=== PATIENT | male | born 1950 | race Caucasian/White ===

== ENCOUNTER 2020-11-24 08:55 | Outpatient (REF) | payer MEDICARE, BC, SELFPAY ==
--- NOTE | ~2020-11-24 | CT_ITS ---
EXAMINATION: CT CHEST WITHOUT CONTRAST CLINICAL INFORMATION: Pulmonary nodules. COMPARISON: None TECHNIQUE: Multidetector volumetric CT imaging of the chest was done. Axial MIP volume rendering provided. Sagittal and coronal reformatted images were obtained. This CT examination was performed using dose optimization techniques as appropriate, variously including the following: *Automated exposure control *Adjustment of mA and/or kV according to patient size (this includes techniques or standardized protocols for targeted exams where dose is matched to indication/reason for exam; i.e. extremities or head) *Use of iterative reconstruction technique DLP: 286 mGy-cm FINDINGS: TANK TERMINAL GAUGER: Well-inflated lungs. LUNGS: The lungs are well-expanded and clear of acute pneumonic consolidation. There is a 3 mm calcified nodule right lower lobe adjacent to the major fissure axial image 287/7. A 2 mm calcified nodule seen in the left upper lobe axial image 215/7. No noncalcified nodule visualized. There is a left major fissure 5 mm nodule, axial image 302/7 likely fissural lymph node. MEDIASTINUM: There is diffuse thyroid enlargement with a large left substernal heterogeneous and partially calcified thyroid extension consistent with goiter. There is mild mass effect on the trachea with moderate shift to the left side. There is a heterogenous appearing thyroid gland. PLEURA: There is no pleural effusion. No pleural mass or thickening. AXILLA: No abnormal lymph nodes seen in the axilla. UPPER ABDOMEN: There is an 8 mm hypodensity right hepatic lobe. Otherwise, the rest of the visualized liver, spleen, pancreas, and bilateral adrenal glands are unremarkable. There is a solitary gallstone. There is a small cyst upper midpole left kidney. OSSEOUS STRUCTURES: No lytic or sclerotic process seen. CT/CT chest wo con IMPRESSION: Large left substernal heterogenous thyroid goiter deviating trachea to the right with moderate mass effect. Enlarged thyroid gland. Two small calcified granulomas and left perifissural lymph node. Hyperinflated lungs without acute process. Gallstone. 8 mm hypodense right lobe liver lesion, likely cyst.
== END 2020-11-24 08:56 | disposition home or self-care (01) ==
LOC: HO.CT 08:55
PROVIDERS: PCP Internal Medicine; Visit Provider Hospitalist
DX: R91.8 Other nonspecific abnormal finding of lung field (principal)
CPT/HCPCS: 71250

== ENCOUNTER → 2020-11-28 09:44 | Outpatient (BNVA) | payer MEDICARE, BC, SELFPAY | PROVIDERS: PCP Internal Medicine; Visit Provider Hospitalist | DX: J44.9 Chronic obstructive pulmonary disease, unspecified (principal); R91.8 Other nonspecific abnormal finding of lung field | CPT/HCPCS: 99212 ==

== ENCOUNTER 2021-12-01 08:42 | Outpatient (REF) | payer MEDICARE, BC, SELFPAY ==
--- NOTE | 2021-12-01 14:59 | PFT_ITS ---
Forced vital capacity 74%, FEV1 64%, FEV1/FVC ratio is 63, FEF 25/75, 48%, and MVV 77%. Post bronchodilator therapy, there is a significant improvement in all parameters resulting in almost complete reversibility. Total lung capacity 93%. Residual volume 133%. Diffusion capacity 62%. CONCLUSION: Moderately severe obstructive airway disorder. Almost complete reversibility after bronchodilator therapy. The results are consistent with bronchial asthma/COPD. Clinical correlation recommended. MD ROSA Bunch/LIANNA / [id number]
== END 2021-12-01 08:43 | disposition home or self-care (01) ==
LOC: HO.RESP 08:42
PROVIDERS: PCP Internal Medicine; Visit Provider Hospitalist
DX: R06.00 Dyspnea, unspecified (principal); J44.9 Chronic obstructive pulmonary disease, unspecified; R91.8 Other nonspecific abnormal finding of lung field
CPT/HCPCS: 94060; 94727; 94729; 99212

== ENCOUNTER 2022-05-14 08:39 | Outpatient (REF) | payer MEDICARE, BC, SELFPAY ==
--- NOTE | ~2022-05-14 | CT_ITS ---
EXAMINATION: CT CHEST WITHOUT CONTRAST CLINICAL INFORMATION: Pulmonary nodules COMPARISON: CT chest 11/24/2020 TECHNIQUE: Multidetector volumetric CT imaging of the chest was done. Axial MIP volume rendering provided. Sagittal and coronal reformatted images were obtained. This CT examination was performed using dose optimization techniques as appropriate, variously including the following: *Automated exposure control *Adjustment of mA and/or kV according to patient size (this includes techniques or standardized protocols for targeted exams where dose is matched to indication/reason for exam; i.e. extremities or head) *Use of iterative reconstruction technique DLP: 188 mGy-cm FINDINGS: DINNER COOK: Unremarkable LUNGS: There is a 2 mm noncalcified nodule left lung apex axial image 82/7, 2 mm noncalcified nodule right lung apex axial image 112/7, a 2 mm calcified nodule left upper lobe axial image 217/7, 2 mm calcified nodule right lower lobe superior segment axial image 80 is a 6/7 and 408/7. These nodules are stable. No acute consolidation, mass or groundglass density seen. There is 5 mm nodule in left major fissure on axial image 316/7 likely a lymph node. MEDIASTINUM: There is diffuse thyroid enlargement the galvez to white left greater than right with substernal extension deviating trachea to the right. There is moderate calcification in the left enlarged thyroid gland suggestive of goiter. PLEURA: There is no pleural effusion. No pleural mass or thickening. AXILLA: No lymphadenopathy. UPPER ABDOMEN: Visualized liver, spleen, pancreas and bilateral adrenal glands unremarkable. OSSEOUS STRUCTURES: No aggressive lytic or sclerotic process seen. CT/CT chest wo con IMPRESSION: Multiple calcified and noncalcified pulmonary nodules are stable when compared to previous study 11/24/2020. No new pulmonary nodule or abnormal lymphadenopathy. Fleischner guidelines were followed.
== END 2022-05-14 08:40 | disposition home or self-care (01) ==
LOC: HO.CT 08:39
PROVIDERS: PCP Internal Medicine; Visit Provider Hospitalist
DX: R91.8 Other nonspecific abnormal finding of lung field (principal)
CPT/HCPCS: 71250

== ENCOUNTER → 2022-05-22 10:01 | Outpatient (BNVA) | payer MEDICARE, BC, SELFPAY | PROVIDERS: PCP Internal Medicine; Visit Provider Hospitalist | DX: J44.9 Chronic obstructive pulmonary disease, unspecified (principal); E04.9 Nontoxic goiter, unspecified; R91.8 Other nonspecific abnormal finding of lung field; Z87.891 Personal history of nicotine dependence | CPT/HCPCS: 99212 ==

== ENCOUNTER 2023-06-04 13:59 | Outpatient (REF) | payer MEDICARE, BC, SELFPAY ==
--- NOTE | 2023-06-04 14:56 | PFT_ITS ---
INDICATION: COPD. SPIROMETRY: FEV1 to FVC of 66% pre bronchodilator, 71% post bronchodilator. FEV1 of 2.73 L, which is 75% predicted. FVC of 3.86 L, which is 78% predicted. There was a significant response to bronchodilators noted. Maximum voluntary ventilation 73% predicted. LUNG VOLUMES: Total lung capacity 121% predicted with a residual volume of 230% predicted and an expiratory reserve volume of 25% predicted. DIFFUSION CAPACITY: DLCO 66% predicted. COMPARISON: None available. INTERPRETATION: There appears to be a partially reversible obstructive ventilatory defect suggestive of asthma-COPD overlap syndrome. The patient did have significant response to bronchodilators noted, and there was a mild decrease in the maximum voluntary ventilation secondary to deconditioning and also potentially worsening dynamic inspiratory capacity. Lung volumes with a trend of hyperinflation and significant air trapping due to the obstructive physiology. The patient also has a decrease in the expiratory reserve volume secondary to an elevated BMI. The patient does have a mild diffusion impairment. Clinical correlation warranted. MD ESTEFANY Carver/MODRonny / [id number]
== END 2023-06-04 14:00 | disposition home or self-care (01) ==
LOC: HO.RESP 13:59
PROVIDERS: PCP Internal Medicine; Visit Provider Hospitalist
DX: J44.9 Chronic obstructive pulmonary disease, unspecified (principal); E04.9 Nontoxic goiter, unspecified; R91.8 Other nonspecific abnormal finding of lung field
CPT/HCPCS: 94010; 94727; 94729

== ENCOUNTER → 2023-06-04 14:56 | Outpatient (BNV) | payer MEDICARE, BC, SELFPAY | PROVIDERS: PCP Internal Medicine; Visit Provider Hospitalist | DX: J45.909 Unspecified asthma, uncomplicated (principal) | CPT/HCPCS: 94060; 94727; 94729 ==

== ENCOUNTER 2023-07-15 15:02 | Outpatient (AMB) | payer MEDICARE, BC, SELFPAY ==
--- NOTE | 2023-07-15 15:24 | A.OFFVIS_ITS ---
Intake Vital Signs 07/15/23 15:31 Height 6 ft 3 in Weight 223 lb BMI 27.9 BP 132/72 Blood Pressure Location Rt brachial Position Sitting Pulse 81 Pulse Oximetry (%) 96 Oxygen Delivery Method Room Air Intake Visit Reasons: COPD Intellectual Property Counsel Required: No Allergies No Known Allergies Allergy (Verified 07/15/23 15:32) HPI HPI Comments History of Present Illness Details He is a 72-year-old gentleman known history of COPD in addition to pulmonary nodules. He had been taking Advair but we switched him over to Symbicort. He has not been using it. He has been noticing increasing shortness of breath knmr-pn-[id number] severity. Associated with some wheezing. Therefore, we took advantage to teach in her uses Symbicort with the respiratory therapist and he took a dose. The patient tolerated it well. He has had a recent CT scan of the chest done 05/2019 and was compared to a CAT scan he had back 2 years ago. His nodules appear to be stable measuring 2-5 mm. He also has some mild emphysema. Otherwise the goiter is also appears to be stable with some deviation to the trachea but still patent trachea which is reassuring. The patient is about to start pulmonary rehabilitation. 12/01/2021 the patient is here for a pulmonary follow-up visit. He continues to have dyspnea on exertion. Thip-wc-culvtaxu severity. He has been using his inhalers. He did have pulmonary function studies demonstrating significant COPD. initially he was [facility]. [facility] inhal[facility]. He has not had to use his rescue inhaler. We did review his last CT scan of the chest done back in November 2020 demonstrating both calcified and noncalcified pulmonary nodules. His largest nodule measures 5 mm. Will have him repeat a CT scan sometime in 4-6 months. 07/15/2023 the patient is here for a pulmonary follow-up visit. Overall the patient has been feeling better. Apparently he has been followed closely for his history of prostate cancer. His PSA levels have been elevated and the p atient did undergo a PET scan. PET scan demonstrated 1 area of uptake in the azygous lymph node. The options were to continue hormonal therapy or to consider radiation therapy likely SP RT to the area. Patient opted to be aggressive so he did receive SBRT over the summer and nodule recovered. He continues on normal therapy and will be following up with [facility] [place] the [place]. The patient does have underlying pulmonary nodules. The last CT scan he had here at [place] was back in 2021. But in view now that he is going to [place] and upgoing the PET scan no additional CT scans are warranted. The patient will continue to get imaging studies through [facility]. Respiratory coburn patient is doing well continues use Wixela twice a day. He did have PFTs done still demonstrating a partially reversible obstruction suggesting asthma COPD overlap syndrome. He also has significant air trapping noted, but it may also be an issue with the volume measurements. Clinically the patient is doing well he is able to exercise and go up a flight of stairs without any significant shortness of breath. Will follow-up in a year's time unless the patient has any worsening respiratory symptoms. He also will request additional imaging studies and SCDs we can not download into our PAC system. [facility] Medical History (Updated 07/15/23 @ 15:43 by Antonio Leach MD) Goiter Pulmonary nodules COPD (chronic obstructive pulmonary disease) Social History (Updated 05/22/22 @ 10:21 by ZHANG De La Garza) Patient Tobacco Use Status: Former Tobacco user Tobacco use type: Cigarette Years Smoked: 5 Years Review of Systems Const Denies night sweats ENT Denies change in voice, Denies dysphagia, Denies lip swelling, Denies mouth pain, Reports nasal congestion, Reports nasal discharge and Denies tongue swelling Card Denies chest pain Resp Denies cough and Denies stridor GI Denies abdominal pain and Denies dysphagia Musc Denies no additional complaints Neuro Denies Neuro-related abnormal movements Psych Denies no additional complaints Endo Reports as per HPI and Reports flushing Edgar/Lymph Denies easy bleeding and Denies lymphadenopathy Aller/Immun Denies lip swelling and Denies tongue swelling Physical Exam Vital Signs: Last Vital Signs Pulse 81 07/15/23 15:31 BP 132/72 07/15/23 15:31 Pulse Ox 96 07/15/23 15:31 Oxygen Delivery Method Room Air 07/15/23 15:31 BMI result Body Mass Index 27.9 Const General: alert HEENT General nose exam: Abnormal external nose present and Nasal discharge present Neck Neck: Yes normal visual inspection, Yes full ROM and Yes no lymphadenopathy Chest Chest palpation & inspection: normal inspection of the chest Resp Auscultation: diminished lung sounds Cardio Rate: regular rate Rhythm: regular rhythm Heart sounds: S1 normal heart sound present and S2 normal heart sound present GI Palpation (GI): Soft to palpation and nontender Auscultation: normal bowel sounds General: Yes no CVA tenderness Back/Spine/Pelvis Back: no CVA tenderness Skin General skin exam: rashes and/or lesions noted Assessment & Plan Assessment & Plan (1) Goiter: Code(s): E04.9 - Nontoxic goiter, unspecified (2) Pulmonary nodules: Code(s): R91.8 - Other nonspecific abnormal finding of lung field (3) COPD (chronic obstructive pulmonary disease): Code(s): J44.9 - Chronic obstructive pulmonary disease, unspecified Qualifiers: COPD type: chronic bronchitis Chronic bronchitis type: simple Qualified Code(s): J41.0 - Simple chronic bronchitis Plan Continue Wixela short-acting beta agonist as needed continue singular continue Claritin as needed spirometry in [address] chest as per [facility] follow-up in 1 year with spirometry Coding Level of Care Code Est Pt Level 4 (71444) Diagnoses Goiter E04.9 Pulmonary nodules R91.8 Simple chronic bronchitis J41.0 COPD type: chronic bronchitis Chronic bronchitis type: simple Time Spent (min) 17
[2023-07-15 15:31] VITALS: BP 132/72; PULSE 81; O2SAT 96; BMI 27.9
== END 2023-07-15 15:52 | disposition home or self-care (01) ==
PROVIDERS: PCP Internal Medicine; Visit Provider Hospitalist
DX: E04.9 Nontoxic goiter, unspecified (principal); R91.8 Other nonspecific abnormal finding of lung field; J41.0 Simple chronic bronchitis
CPT/HCPCS: 99214

== ENCOUNTER → 2023-07-15 15:02 | Outpatient (BNVA) | payer MEDICARE, BC, SELFPAY | PROVIDERS: PCP Internal Medicine; Visit Provider Hospitalist | DX: J41.0 Simple chronic bronchitis (principal); R91.8 Other nonspecific abnormal finding of lung field; E04.9 Nontoxic goiter, unspecified | CPT/HCPCS: 99212 ==

== ENCOUNTER 2025-07-12 14:33 | Outpatient (AMB) | payer MEDICARE, BC, SELFPAY ==
--- NOTE | 2025-07-12 14:56 | MHC.OFFVIS ---
Vital Signs 07/12/25 14:57 Height 6 ft 3 in Weight 187 lb 6.287 oz BMI 23.4 BP 130/68 Blood Pressure Location Lt brachial Position Sitting Pulse 68 Pulse Source Pulse Oximeter Pulse Oximetry (%) 96 Oxygen Delivery Method Room Air Intake Visit Reasons: copd Outsole Leveler Required: No Accompanied by: Self / Same As Patient Allergies No Known Allergies Allergy (Verified 07/12/25 15:00) HPI Comments Details: He is a 74-year-old gentleman known history of COPD in addition to pulmonary nodules. He had been taking Advair but we switched him over to Symbicort. He has not been using it. He has been noticing increasing shortness of breath [id number] severity. Associated with some wheezing. Therefore, we took advantage to teach in her uses Symbicort with the respiratory therapist and he took a dose. The patient tolerated it well. He has had a recent CT scan of the chest done 05/2019 and was compared to a CAT scan he had back 2 years ago. His nodules appear to be stable measuring 2-5 mm. He also has some mild emphysema. Otherwise the goiter is also appears to be stable with some deviation to the trachea but still patent trachea which is reassuring. The patient is about to start pulmonary rehabilitation. 12/01/2021 the patient is here for a pulmonary follow-up visit. He continues to have dyspnea on exertion. Pabd-wx-exgznrsf severity. He has been using his inhalers. He did have pulmonary function studies demonstrating significant COPD. initially he was on Symbicort. But, [facility] Wixela [facility]ary inhaler. He has not had to use his rescue inhaler. We did review his last CT scan of the chest done back in November 2020 demonstrating both calcified and noncalcified pulmonary nodules. His largest nodule measures 5 mm. Will have him repeat a CT scan sometime in 4-6 months. 07/15/2023 the patient is here for a pulmonary follow-up visit. Overall the patient has been feeling better. Apparently he has been followed closely for his history of prostate cancer. His PSA levels have been elevated and the patient did undergo a PET scan. PET scan demonstrated 1 area of uptake in the azygous lymph node. The options were to continue hormonal therapy or to consider radiation therapy likely SP RT to the area. Patient opted to be aggressive so he did receive SBRT over the summer and nodule recovered. He continues on normal therapy and will be following up with [facility] regarding the treatment. The patient does have underlying pulmonary nodules. The last CT scan he had here at [place] was back in 2021. But in view now that he is going to [place] and upgoing the PET scan no additional CT scans are warranted. The patient will continue to get imaging studies through [facility]. Respiratory coburn patient is doing well continues use Wixela twice a day. He did have PFTs done still demonstrating a partially reversible obstruction suggesting asthma COPD overlap syndrome. He also has significant air trapping noted, but it may also be an issue with the volume measurements. Clinically the patient is doing well he is able to exercise and go up a flight of stairs without any significant shortness of breath. Will follow-up in a year's time unless the patient has any worsening respiratory symptoms. He also will request additional imaging studies and SCDs we can not download into our PAC system. 07/12/2025 the patient is here for a pulmonary follow-up visit. Overall he is doing excellent. He has had some lifestyle changes have been very helpful. He has changed his eating habits and also started exercising. He has significant amount of weight loss and healthy way. He initially was diagnosed with diabetes but then was able to get the hemoglobin A1c down to below 6 which is reassuring. From a respiratory status is doing well although in the fall typically has increasing symptoms. [facility]. As far as the prostate cancer with metastatic disease he is followed closely at [facility]. The patient did have a PET scan back in 2022. No recent CAT scans to follow up with his pulmonary nodules we has both calcified and noncalcified pulmonary nodules. Will go ahead and request a repeat CAT scan sometime in the spring of 2025 and will follow-up then. If he has any issues prior to this she can always call for further recommendations otherwise will follow-up in a year's time. [facility] Medical History (Updated 07/15/23 @ 15:43 by Antonio Leach MD) Goiter Pulmonary nodules COPD (chronic obstructive pulmonary disease) Social History Patient Tobacco Use Status: Former Tobacco user Tobacco use type: Cigarette Years Smoked: 5 Years Review of Systems Const Denies night sweats and Reports weight loss ENT Denies change in voice, Denies dysphagia, Denies lip swelling, Denies mouth pain, Reports nasal congestion, Reports nasal discharge and Denies tongue swelling Card Denies chest pain Resp Denies cough and Denies stridor GI Denies abdominal pain and Denies dysphagia Musc Denies no additional complaints Neuro Denies Neuro-related abnormal movements Psych Denies no additional complaints Endo Reports as per HPI and Reports flushing Edgar/Lymph Denies easy bleeding and Denies lymphadenopathy Aller/Immun Denies lip swelling and Denies tongue swelling Physical Exam Vital Signs: Last Vital Signs Pulse 68 07/12/25 14:57 BP 130/68 07/12/25 14:57 Pulse Ox 96 07/12/25 14:57 Oxygen Delivery Method Room Air 07/12/25 14:57 BMI result Body Mass Index 23.4 Const General: alert HEENT General nose exam: Abnormal external nose present and Nasal discharge present Neck Neck: Yes normal visual inspection, Yes full ROM and Yes no lymphadenopathy Chest Chest palpation & inspection: normal inspection of the chest Resp Effort & Inspection: normal respiratory effort Auscultation: diminished lung sounds Cardio Rate: regular rate Rhythm: regular rhythm Heart sounds: S1 normal heart sound present and S2 normal heart sound present GI Palpation (GI): Soft to palpation and nontender Auscultation: normal bowel sounds General: Yes no CVA tenderness Back/Spine/Pelvis Back: no CVA tenderness Skin General skin exam: rashes and/or lesions noted Assessment & Plan Assessment & Plan (1) Goiter: Code(s): E04.9 - Nontoxic goiter, unspecified Category: Medical (2) Pulmonary nodules: Code(s): R91.8 - Other nonspecific abnormal finding of lung field Category: Medical (3) COPD (chronic obstructive pulmonary disease): Code(s): J44.9 - Chronic obstructive pulmonary disease, unspecified Category: Medical Qualifiers: COPD type: chronic bronchitis Chronic bronchitis type: simple Qualified Code(s): J41.0 - Simple chronic bronchitis Plan Continue Wixela short-acting beta agonist as needed continue singular continue Claritin as needed CT chest in 6 months follow-up in 1 year Orders: Orders CT chest wo IV con 6 Months R91.8 - Other nonspecific abnormal finding of lung field Coding Level of Care Code Est Pt Level 4 (53305) Diagnoses Goiter E04.9 Pulmonary nodules R91.8 Simple chronic bronchitis J41.0 COPD type: chronic bronchitis Chronic bronchitis type: simple Time Spent (min) 16
[2025-07-12 14:57] VITALS: BP 130/68; PULSE 68; O2SAT 96; BMI 23.4
--- OUTSIDE RECORDS SUMMARY | 2025-07-12 18:21 | XMS_ITS | Encounter Summary ---
Author Organization [facility] Address [address] [facility] [place] [phone] Phone Care Team Providers Care Protocol Officer Name Role Phone Sd Drew MD Primary Care Provider + [phone] Denny Jean DO Primary Care Provider Encounter Details Date Type Department Care Team (Late st Contact Info) Description 01/08/2025 [employer] Generated VIRTUAL DEPARTMENT [address] [place] [phone] Unknown, Unknown, Social History Tobacco Use Types Packs/Day Years Used Date Smoking Tobacco: Former Cigarettes Q uit: 1973 Smokeless Tobacco: Never Alcohol Use Standard Drinks/Week Comments Yes 0 (1 standard drink = 0.6 oz pur e alcohol) ocassional beer Education Answer Date Recorded Are you interested in more education? Not on alfred e 01/17/2023 Are you concerned about learning? Not on file 01/17/2023 No 01/17/2023 No 01/17/2023 Digital Access Answer Date Recorded No 02/19/2023 No 02/19/2023 Reliable internet access at home? Not on file 02/19/2023 Device with a working camera? Not on file Sex and Gender Information Value Date Recorded Sex Assigned at Not on file Legal Sex Male 3:45 PM EST Gender Identity Not on file Sexual Orientation Not on file documented as of this encounter Progress Notes * Otf Carbajal MD - 01/08/2025 12:00 AM EDT [facility] ONCOLOGY PROGRESS NOTE Patient Name: DUSTIN REID Date of : 1950 Diagnosis: [ICD10] C61 Malignant neoplasm of prostate PCP: SD DREW Date of Visit: January 08, 2025 Last visit: 03/16/2024 Reason for Visit: Prostate cancer Interval History: He is here alone today. PSA remains undetectable, done at [facility]. Will his testosterone levels have not returned to normal. We discussed these matters at length and if he wishes, he could consider discussing this with an securities vault supervisor. Testosterone replacement therapy could be considered but this would be somewhat risky given his history of prostate cancer. We also discussed the utility of a DEXA scan and he may consider this with his PCP or local team. He wishes to have another visit here and will do so in 9 months. PREV COMMENTS # JUN 2025 07/09/2024: PSA < 0.01. CBC shows a mild anemia. He reports he is feeling well overall. No acute issues. We review his mild anemia. No bleeding in stool or urine. We discussed that he may want to speak with his PCP about this matter. I am unsure if he has had a colonoscopy or has concerns around GI bleed, though he states he had a c-scope a few years ago, normal. He will discuss this further with his PCP. Getting an annual PE soon, will be checking labs again he thinks. Testosterone levels remain suppressed. It may take up to a year for levels to normalize, if they do. We are finewith another visit in 6 months. # FEB 2024 He is here alone. He is now on surveillance. He reports feeling well, energy is improving. We discussed concepts of testosterone recovery and further PSA testing. He wishes to have another visit in 4 months, per patient preference, which is fine. He is fine with in person visits. # NOV 2023 He is here with his . We review his labs done at [facility]. 11/13/2023: CBC 7.33/12.8, 39.6%/222, PSA less than 0.01 Today will be his last leuprolide shot. He does report some fatigue, but tolerable. # AUG 2023 He is here with . PSA was not done but they will do post visit. He was supposed to do at [facility], but he will do that in the future. He otherwise is doing well. Still has tolerable hot flashes. Has decreased stamina. He will get a 3 month dose of leuprolide. He will get a dosetoday and his next visit will be his last dose. I will contact him post visit with his PSA results. # APR 2023 He is here with his . Overall he is doing well with ADT. We discussed matters at length and he is willing to continue for longer treatment.He may benefit from a longer than 6 months duration of ADT for his concurrent radiation/ADT therapy. I am thinking perhaps 1 to 1.5 years. He will obtain labs closer to home at the [facility] labs. I will send orders through [employer]. He will see me again in 3 months for next leuprolide shot though. #FEB 2023 He is here with his . PSA now undetectable. I give him a copy of results. He completed radiation therapy with our colleagues out at [facility]. He will continue with his next leuprolide dose. We discussed duration of 6 months versus longer. We will continue discussion next time. #NOV 2022 He is here alone. We start leuprolide. I did reach out to his radiation oncologist, Dr Roe, and apparently, he is no longer at that practice. I will review his scans with Dr Cárdenas. He will proceed with a 3 month shot today. # 11/23 PETCT PSMA shows a thoracic lymph node lesion and possible pelvic lymph node involvement, though low tumor burden. He is willing to start ADT. Bicalutamide will be started and he will return next week to start leuprolide. Radiation to the thoracic node could be considered, though I do wonder about the radiation field and the risk benefit of radiation to this area. # OCT 2022 He is here alone today. We reviewed his prostate cancer history. He has undergone prostatectomy and adjuvant radiation therapy in 2014. PSA had been undetectable until summer 2021 when it became detectable. Most recent PSA on 10/29/2022 shows 0.53. He has been recently seen by colleague Dr. Gurdeep Munoz. He is referred here to medical oncology for concerns of biochemical recurrence. He has no major symptomatic issues at this time. We discuss at length concepts of biochemical recurrence. He wishes to have staging scans. Review of Systems: A full 12 point review systems was performed and is otherwise unremarkable except as noted elsewhere. Diagnosis History: BACKGROUND: Referred from PCP and urologist for concerns of prostate cancer. 01/10/2015: Prostatectomy, prostate adenocarcinoma with extraprostatic extension seen. 57 g, [place] 9 (4+5), neoadjuvant therapy effect seen, 0 of 4 lymph nodes, (pT3a, pN0, pMX) LVI negative, PNI positive, no seminal vesicles involvement. Margin negative. Dr Ronn Ward, [facility]. 04/18/2015 - 06/03/2015 adjuvant radiation therapy given, with Josef Roe MD at [facility]; concurrent ADT given. 11/09/2022: First visit [facility] medical oncology Dr. Otf Carbajal 11/23/2022: start ADT 01/14/2023 - 02/01/2023 - XRT to R mediastinal LN PSA 06/20/2022 0.13 10/29/2022 0.53 Past Medical History: Asthma Kidney stones Prostate cancer Hypertension BPH Renal cysts Medications: amLODIPine 10 mg 1 Tablet Oral Daily metoprolol succinate 25 mg 1 Tablet Oral Daily pravastatin 20 mg 1 Tablet Oral Daily Wixela Inhub [fluticasone propionate/salmeterol xinafoate] 250-50 mcg/dose Inhalation loratadine 10 mg 1 Tablet Oral Daily aspirin 81 mg 1 Tablet Oral Daily ProAir HFA [albuterol sulfate] 90 mcg/actuation Inhalation As Needed latanoprost 0.005 % Ophthalmic Daily bicalutamide 50 mg 1 Tablet Oral Daily Allergies: No Known Drug Allergies Family History: Will review in future Social History: , spouse , 2 sons; works in sales History of smoking, rare etoh use. Physical Examination: Date 11/09/2022 05/20/2023 01/08/2025 Time 10:29 AM 10:12 AM 10:27 AM Vital Signs & Weight T (F) (F) 97.8 P 69 B/P (mmHg) 136/73 L or R Arm LA Oxygen Saturation (%) 99 Height (in) (inch) 72.75 Weight (lb) (lb) 181 BSA(D) (m*2) 2.06 BMI (A) (kg/m*2) 24 Percent Weight Change -21 Pain Intensity-Current None ECOG performance status: 1 GENERAL: Alert and oriented x 3, no acute distress, well nourished and developed, friendly, appropriate and cooperative. HEENT: normocephalic, atraumatic head, EOMI, anicteric sclera, neck supple, oropharynx clear, no lid lag, nares normal. LN: no submandibular, cervical, supraclavicular lymphadenopathy noted Lungs: no respiratory distress noted. Abdomen: soft, ND Extremities: no leg edema noted Neuro: no focal deficits, motor strength 5/5 grossly Laboratory Data: 11/21/2022 PETCT PSMA Comparison exams: None. Findings: Head and Neck: There is a large goiter, with enlargement of the left lobe greater than right, right with deviation of the trachea which is also mildly narrowed. There is substernal extension of left lobe, with multiple calcifications within the parenchyma particularly of the left lobe. No abnormal uptake is found here. No other abnormal uptake is noted within the neck Chest: There is focal moderately intense uptakewithin a nonenlarged azygos lymph node. No other abnormal uptake is found within the mediastinum, hilar, axillary or supraclavicular regions, chest wall, pleural spaces or lungs. No pleural or pericardial effusions. No lung nodules, or airspace opacities are found. Abdomen and Pelvis: No surgicalclips are noted, but the patient appears to be post radical prostatectomy, as neither prostate nor seminal vesicles are identified. No abnormal uptake is found within the prostatic bed, or remaining perivesical, pelvic fat. No abnormal uptake is notedwithin obturator, internal iliac, presacral, external iliac, common iliac, periaortic retroperitoneal and pericaval lymph node chains of gonadal chains on either side. No hydronephrosis or hydroureter. There is quite low level uptake within nonenlarged left inguinal lymph nodes, similar to blood pool, but while these are not enlarged, these are asymmetrically increased in number and show greater uptake than the contralateral side. No abnormal uptake is found of liver, spleen, adrenal glands, pancreas.There is cholelithiasis. There is mild stool distention of the sigmoid, but without evidence of stercoral colitis, or distal stenosis, or suggestion of the sigmoid mass no distention of the remainder of the colon with gas or stool. Appendix unremarkable. Skeleton: No abnormal uptake is found. No suspicious bony lytic or sclerotic lesions. Impression: 1. Prominent uptake is noted of a small mediastinal retrocaval azygos lymph node, suspicious for metastasis. 2. Asymmetrically increased numberand asymmetrically larger size (although not abnormally enlarged using CT size criteria) and borderline increased uptake of left inguinal lymph nodes. 3. Cholelithiasis. 4. 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 Electronically Signed By: Tra Pierce MD Date Time PSA 06/20/2022 0.13 10/29/2022 0.Nov started ADT 12/03/2022 0.23 mid APR - XRT to mediastinal lymph node 02/21/2023 <0.04 04/26/2023 <0.04 08/23/2023 <0.04 11/13/2023: <0.01 ([facility]) 03/05/2024 <0.01 ([facility]) 07/09/2024: <0.01 ([facility]) 01/01/2025: <0.01 ([facility]) CBC 7 11/04.6, 38.5%/ T= <3 Assessment:74 M with prostate adenocarcinoma, status post prostatectomy and adjuvant radiation therapy in 2014, [place] 9 (4+5) disease, now with concerns of biochemical recurrence, 10/29/2022 PSA 0.56. PETCT PSMA scans in early NOV 2022 shows oligomet disease. Clinically stable. ADT started in NOV 2022. Radiation to mediastinum for lymph node involvement completed in JANUARY 2023. ADT completed FEB 2024. Today continues undetectable PSA. Testosterone levels remain low. Consider DEXA scan, per patient locally. PREV COMMENTS # JUN 2024 Doing well from PSA perspective. Mild anemia noted as above. He will review with PCP. # FEB 2024 he is doing well on surveillance. We will see how his testosterone recovers. # NOV 2023 He is doing well, PSA remains undetectable. Today is his last leuprolide dose. # AUG 2023 he continues to do well with ADT. PSA is undetectable. # APR 2023 as above, we will continue with leuprolide for longer than 6 months, given unusual site of recurrence and high-grade Gerald score cancer. He is tolerating ADT well. Next visit, we may consider giving a 6-month duration shot. We will continue with 3-monthinterval PSA checks though. Supportive care and encouragement given. # FEB 2023 PSA undetectable. He is doing well. Continue with leuprolide. Consider 6 mo duration or longer. # NOV 2022 He returns to start leuprolide. We will discuss concepts of abiraterone use in the future, though given his low tumor burden, we can defer its use for now. Review with rad onc as above. # 11/23 as above, we reviewed PET/CT PSMA scans which show evident, but low tumor burden. After some discussion, he wishes to proceed with start of ADT. There could be possibility of radiation to the area but we will review this with his radiation oncologist. I did have initial concerns of radiation field side effects but I will defer this to the radiation oncologist for better assessment. Patient will start bicalutamide, then return in 1-2 weeks for leuprolide therapy. # OCT 2022 Summary thoughts: We reviewed matters at length and he wishes to proceed with a PETCT PSMA scan, which is reasonable. We will see if there is potential for oligometastatic disease directed therapy to optimize ADT exposure. See 11/09/2022 note for other initial detailed comments. Leuprolide management Leuprolide dose: 22.5 mg on 11/22/2023; last dose, completing approximately 15 months duration. ADT side effects: minimal Bone management - on calcium and vitamin D - Denosumab orZometa use; DEXA scan, FRAX score TBD Cardiac/DM risks: consider meds, management, referral as needed Plan: 1. On surveillance. 2. RTC 9 months, previsit labs ordered. Pt is fine with inperson visits here. Otf Carbajal MD Medical Oncology Visit 40 min -this is inclusive of review of records, documentation of visit, care coordination and further consideration of treatment plan as well as time spent with patient, as above. I have maintained a longitudinal relationship with the patient, overseeing the care of their prostate cancer diagnosis. This has significantly influenced my decision-making and treatment plans during today's encounter. Electronically signed by: Otf Carbajal MD January 12, 2025 8:03 PM CC: cc: CHAYITO CANTU, MD Jaswinder Estrella MD RICHARDS, RAYMOND : 1950 DOS: 01/08/25 Page 2 of 2 CC OTHER PROVIDER: HENRY MUNOZ MD PRIMARY CARE: SD DREW MD documented in this encounter Plan of Treatment Upcoming Encounters Date Type Department Care Team (Late st Contact Info) Description 11/22/2025 4:00 PM EST Office Visit [facility] [address] [place] [address] Denny Jean DO [address] [facility], [address] [place] [phone] 02/15/2026 3:15 PM EDT Follow-Up [facility] [address] [place] [address] Gurdeep Munoz MD [address] [place] [address] [email or web address] documented as of this encounter Visit Diagnoses Not on filedocumented in this encounter Care Teams Protocol Officer Relationship Specialty Start Date End Date Sd Drew MD [address] [place] [address] PCP - General Internal Medicine 12/19/22 05/20/25 Denny Jean DO [address] [place] [address], [address] [place] [phone] [email or web address] PCP - General Internal Medicine 05/21/25 documented as of this encounter Additional Source Comments The information contained in this document represents components of the legal health record. It is not the complete legal health record.[facility]
--- OUTSIDE RECORDS SUMMARY | 2025-07-12 18:21 | XMS_ITS | Encounter Summary ---
Author Organization [facility] Address [address] [facility] [address] [place], [place] [id number] Phone Care Team Providers Care Executive Administrative Asst Name Role Phone Shital Drew MD Primary Care Provider + [phone] Denny Jean DO Primary Care Provider Encounter Details Date Type Department Care Team (Late st Contact Info) Description 05/20/2023 [employer] Generated VIRTUAL DEPARTMENT Unknown, Unknown, MD Social History Tobacco Use Types Packs/Day Years [...] Progress Notes * Otf Carbajal MD - 05/20/2023 12:00 AM EDT [facility] MEDICAL ONCOLOGY PROGRESS NOTE Patient Name: SUGEY REID Date of : 1950 Diagnosis: [ICD10] C61 Malignant neoplasm of prostate PCP: SHITAL DREW Date of Visit: May 20, 2023 Last visit: 02/25/2023 Reason for Visit: Prostate cancer Interval History: He is here with his . Overall he is doing well with ADT. We discussed mattersat length and he is willing to continue for longer treatment. He may benefit from a longer than 6 months duration of ADT for his concurrent radiation/ADT therapy. I am thinking perhaps 1 to 1.5 years. He will obtain labs closer to home at the [facility] labs. I will send orders through [employer] [employer]. He will see me again in 3 months for next leuprolide shot though. PREV COMMENTS #FEB 2023 He is here with his . PSA now undetectable. I give him a copy of results. He completed radiation therapy with our colleagues out at [facility]. He will continue with his next leuprolide [...] risk benefit of radiation to this area. Discussed and patient will consider reaching out to his local radiation oncologist to have review of this matter. # OCT 2022 He is here alone [...] adenocarcinoma with extraprostatic extension seen. 57 g, Roselle 9 (4+5), neoadjuvant therapy effect seen, 0 of 4 lymph nodes, (pT3a, pN0, pMX) LVI negative, PNI positive, no seminal vesicles involvement. Margin negative. Dr Ronn Ward, [facility]. 04/18/2015 - 06/03/2015 adjuvant radiation therapy given, with Josef Roe MD at [facility]; concurrent ADT given. 11/09/2022: First visit [facility] medical oncology Dr. Otf Carbajal 11/23/2022: start [...] etoh use. Physical Examination: Date 11/09/2022 05/20/2023 Time 10:29 AM 10:12 AM Vital Signs & Weight T (F) (F) 97.8 P 76 B/P (mmHg) 151/71 L or R Arm LA Oxygen Saturation (%) 98 Height (in) (inch) 72.75 Weight (lb) (lb) 217 BSA(D) (m*2) 2.22 BMI (A) (kg/m*2) 28.8 Percent Weight Change -6 Pain Intensity-Current None ECOG performance status: 0. GENERAL: Alert and oriented x 3, no [...] neck Chest: There is focal moderately intense uptake within a nonenlarged azygos lymph node. No other abnormal uptake is found within the mediastinum, hilar, axillary or supraclavicular regions, chest wall, pleural spaces or lungs. No pleural or pericardial effusions. No lung nodules, or airspace opacities are found. Abdomen and Pelvis: No surgical clips are noted, but the patient appears to be post radical prostatectomy, as neither prostate nor seminal vesicles are identified. No abnormal uptake is found within the prostatic bed, or remainingperivesical, pelvic fat. No abnormal uptake is noted within obturator, internal iliac, presacral, external iliac, common iliac, periaortic retroperitoneal and pericaval lymph node chains of gonadal chains on either side. No hydronephrosis or hydroureter.There is quite low level uptake within nonenlarged left inguinal lymph nodes, similar to blood pool, but while these are not enlarged, these are asymmetrically increased in number and show greater uptake than the contralateral side. No abnormaluptake is found of liver, spleen, adrenal glands, pancreas. There is cholelithiasis. There is mild stool distention [...] node, suspicious for metastasis. 2. Asymmetrically increased number and asymmetrically larger size (although not abnormally enlarged using CT size criteria) and borderline increased uptake of left inguinal lymph nodes. 3. Cholelithiasis. 4. 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 Electronically Signed By: Tra Pierce MD Date 02/21/2023 05/16/2023 Time 10:45 AM 1:39 PM CBC with Differential WBC (10^3/mm3) 7.7 8.0 RBC (10^6/mm3) 4.56 4.68 HEMOGLOBIN (g/dl) 13.6 13.9 HEMATOCRIT (%) 40.2 L 42.4 PLATELET (10^3/mm3) 254 243 % NEUTROPHILS (%) 73.3 H 71.8 H % LYMPHOCYTES (%) 12.3 L 14.6 L % MONOCYTES (%) 9.9 9.7 % EOSINOPHILS (%) 3.2 3.0 % BASOPHILS (%) 0.9 0.7 % IMMATURE GRANULOCYTES (%) 0.4 0.2 ABSOLUTE NEUTROPHIL COUNT (10^3/mm3) 5.7 5.7 ABSOLUTE LYMPHOCYTE COUNT (10^3/mm3) 1.0 1.2 ABSOLUTE MONOCYTE COUNT (10^3/mm3) 0.8 0.8 ABSOLUTE EOSINOPHIL COUNT (10^3/mm3) 0.3 0.2 ABSOLUTE BASOPHIL COUNT (10^3/mm3) 0.1 0.1 ABS IMMATURE GRANULOCYTES (10^3/mm3) 0.0 0.0 MCV (fL) 88.2 90.6 MCH (pg) 29.8 29.7 MCHC (g/dl) 33.8 32.8 RBC DISTRIBUTION WIDTH (%) 12.4 11.6 % NUCLEATED RBC (%) 0 0 ABS NUCLEATED RBC (10^3/mm3) 0.0 0.0 COMMP SODIUM (mEq/L) 144 142 POTASSIUM (mEq/L) 4.1 4.1 CHLORIDE (mEq/L) 106 104 CARBON DIOXIDE (mEq/L) 32 H 32 H ANION GAP (mEq/L) 6 6 GLUCOSE (mg/dL) 212 H 112 H BUN (mg/dL) 18 23 Creatinine (mg/dL) 1.04 1.01 GFR ESTIMATED (CALC) () 75 CALCIUM (mg/dL) 9.7 10.2 TOTAL PROTEIN (g/dl) 7.7 8.1 ALBUMIN (g/dl) 4.5 GLOBULIN (g/dl) 3.2 3.3 ALB/GLOB RATIO 1.4 1.5 BILIRUBIN,TOTAL (mg/dL) 0.5 0.4 ALKALINE PHOSPHATASE (U/L) 98 92 AST(SGOT) (U/L) 14 10 L ALT(SGPT) (U/L) 20 25 Chemistry PROSTATE SPECIFIC ANTIGEN (ng/ml) < 0.04 < 0.04 Other Labs WHITE BLOOD CELL COUNT (10^3/mm3) 7.70 8.00 Hematocrit (%) 40.20 L 42.40 Potassium (mEq/L) 4.10 4.10 AST(SGOT) (U/L) 14.00 10.00 L ALT(SGPT) (U/L) 20.00 25.00 Sodium (mEq/L) 144.00 142.00 Chloride (mEq/L) 106.00 104.00 Bilirubin, Total (mg/dL) 0.50 0.40 Hemoglobin (g/dl) 13.60 13.90 ALBUMIN (gm/dl) 4.8 MPV (fL) 9.6 9.2 L eGFRcr 78 PSA 06/20/2022 0.13 10/29/2022 0.Nov started ADT 12/03/2022 0.23 mid APR - XRT to mediastinal lymph node 02/21/2023 <0.04 04/26/2023 <0.04 Assessment:72 M with prostate adenocarcinoma, status post prostatectomy and adjuvant radiation therapy in 2014, Gerald 9 (4+5) disease, now with concerns of biochemical recurrence, 10/29/2022 PSA 0.56. PETCT PSMA scans in early NOV 2022 shows oligomet disease. Clinically stable. ADT started in NOV 2022. Today as above, we will continue with leuprolide for longer than 6 months, given unusual site of recurrence and high-grade Gerald score cancer. He is tolerating ADT well. Next visit, we may considergiving a 6-month duration shot. We will continue with 3-month interval PSA checks though. Supportive care and encouragement given. PREV COMMENTS # FEB 2023 PSA undetectable. He is doing well. Continue with leuprolide. Consider 6 mo duration or longer. # NOV 2022 He returns to start leuprolide. We will discuss concepts of abiraterone use in the future, though given his low tumor burden, we can defer its use for now. Review with rad onc as above. # / as above, we reviewed PET/CT PSMA scans [...] Leuprolide management Leuprolide dose: 22.5 mg on 05/20/2023; next administration on 08/12/2023 ADT side effects: minimal Bone management - on calcium and vitamin D - Denosumab or Zometa use; DEXA scan, FRAX score TBD Cardiac/DM risks: consider meds, management, referral as needed Plan: 1. Leuprolide today. 2. RTC 3 months, previsit labs ordered Otf Carbajal MD Medical Oncology Visit 40 min Electronically signed by: Otf Carbajal MD May 20, 2023 1:03 PM CC: cc: CHAYITO CANTU, MD Jaswinder Estrella MD RICHARDS, RAYMOND : 1950 DOS: 05/20/23 Page 6 of 6 CC OTHER PROVIDER: PRIMARY CARE: SHITAL DREW MD documented in this encounter Plan of Treatment Upcoming Encounters Date Type Department Care Team (Late st Contact Info) Description 11/22/2025 4:00 PM EST Office Visit [facility] [address] [place] [address] [place] [id number] Denny Jean DO [address] [place] [address], [address] [place] [address] 02/15/2026 3:15 PM EDT Follow-Up [facility] [address] [place] [address] Gurdeep Munoz MD [address] [place] [address] documented as of this encounter Visit Diagnoses Not on filedocumented in this encounter Care Teams Executive Administrative Asst Relationship Specialty Start Date End Date Shital Drew MD [address] [place] [address] PCP - General Internal Medicine 12/19/22 05/20/25 Denny Jean DO [address] [place] [address], [address] [place] [address] PCP - General Internal Medicine 05/21/25 documented as of this encounter Additional Source Comments The information contained in this document represents components of the legal health record. It is not the complete legal health record.[facility]
--- OUTSIDE RECORDS SUMMARY | 2025-07-12 18:21 | XMS_ITS | Clinical Summary ---
Author Organization [facility] Address [address] [facility] [address] [place] [address] Phone Care Team Providers Care Cooker Pie Filling Name Role Phone Ted Denny Leyva DO Primary Care Provider Allergies No known active allergies Medications calcium citrate-vitamin D3 315 mg-6.25 mcg (250 unit) per tablet Take 1 tablet by mouth daily. Active magnesium oxide 250 mg (150 mg elemental) Tab Take 250 mg by mouth daily. Active amLODIPine (NORVASC) 10 MG tablet Take 10 mg by mouth daily. Active fluticasone propion-salmete roL (ADVAIR DISKUS) 250-50 mcg/dose DISKUS Inhale 250 mcg/actuation of fluticasone into the lungs. Active montelukast (SINGULAIR) 10 mg tablet Take 10 mg by mouth nightly at bedtime. Active loratadine (CLARITIN REDITABS) 10 mg dissolvable tablet Take 10 mg by mouth daily. Active latanoprost (XALATAN) 0.005 % ophthalmic solution Place 1 drop into each eye nightly at bedtime. Active albuterol 90 mcg/actuation inhaler Inhale 2 puffs into the lungs every 6 (six) hours as needed. Active pravastatin (PRAVACHOL) 20 MG tablet Take 20 mg by mouth. Active metoprolol succinate (TOPROL-XL) 50 MG 24 hr tablet Take 1 tablet by mouth every morning. 4 Active ONETOUCH VERIO Strp strips USE TO CHECK BLOOD TWICE DAILY FOR 90 DAYS 5 Active ONETOUCH DELICA PLUS LANCET 30 gauge Misc TEST BLOOD GLUCOSE THREE TIMES DAILY 5 Active lisinopril (PRINIVIL,ZESTR IL) 10 MG tablet Take 2 tablets (20 mg total) by mouth daily. 180 tablet 3 5 Active lisinopril (PRINIVIL,ZESTR IL) 10 MG tablet Take 20 mg by mouth daily. 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 Hany Garcia Type 2 diabetes mellitus wit hout complication, without long-term current use of insulin 05/21/2025 Assessment & Plan (05/21/2025 3:24 PM EDT): Well controlled on diet alone. Multinodular goiter 11/29/2022 Osteoarthritis 11/29/2022 Assessment & Plan (05/23/2025 3:31 PM EDT): Knees primarily affected, will continue monitoring. Hyperlipidemia 11/29/2022 Assessment & Plan (05/21/2025 3:23 PM EDT): Pravastatin works well Calculus, kidney 03/08/2016 Assessment & Plan (05/21/2025 3:25 PM EDT): Oxalate stones, will continue to monitor Cyst of kidney, acquired 03/08/2016 Mild intermittent asthma without complication Assessment & Plan (05/21/2025 3:23 PM EDT): Pretty well controlled, taking meds as prescribed. More cold weather related. Essential hypertension 12/30/2014 Assessment & Plan (05/23/2025 3:31 PM EDT): Stable and well-controlled on current medication, no change this time. Continue monitoring. Prostate cancer 09/22/2014 Overview (05/21/2025): Adenocarcinoma Of The Prostate Gland Assessment & Plan (05/21/2025 3:22 PM EDT): Done with hormone therapy, prostatectomy. Will be monitoring with urology, and oncology. Resolved Problems Problem Noted Date Diagnosed Date Resolved Date Other microscopic hematuria 03/08/2016 05/21/2025 Encounters Date Type Department Care Team Description 06/24/[address] [place] [address] Sayda Rodriguez 05/21/2025 3:00 PM EDT Office Visit [address] [place] [address] Denny Jean, Prostate cancer (Primary Dx); Mild intermittent asthma without complication; COPD with asthma; Hyperlipidemia, unspecified hyperlipidemia type; Type 2 diabetes mellitus without complication, without long-term current use of insulin; Osteoarthritis of both knees, unspecified osteoarthritis type; Calculus, kidney; Essential hypertension from Last 3 Months Immunizations Immunization Administration Dates Next Due COVID-19 (Pre-07/15) Moderna Vaccine, mRNA, PF 08/08/2021,11/30/2020,11/02/2020 Influenza High-Dose Quadriva lent Preservative Free IM 06/26/2023,06/24/2022,06/19/2021,06/22 Influenza High-Dose Trivalen t Preservative Free IM 06/13/2018,07/24/2017 Influenza Trivalent Adjuvant ed Preservative free IM 06/29/2024 Influenza, Unspecified Formulation 06/29,07/14/2023,06/23/2022,05/24,06/23/2020,06/15/2019,05/24/2018 ,08/02/2017 Pneumococcal conjugate PCV13 12/20/2015 Pneumococcal polysaccharide PPSV23 08/17/2020 RSV Vaccine (bivalent) 06/29/2024 RSV Vaccine (monovalent, adjuvanted) 06/29/2024 Td (Adult),Absorbed,Preserva tive Free,Lf Unspecified 10/08/2011 Tdap 10/02/2021,10/08/2011 Zoster live 07/24/2014 Zoster recombinant 02/10/2019,12/15/2018 Family History Medical History Relation Comments Emphysema Father Dementia Mother Schizophrenia Mother Dementia Sister 1 Lewy Body No Known Problems Sister 2 No Known Problems Sister 3 Parkinson's disease Sister 4 ?- Maybe ALS Relation Status Comments Father Mother Sister 1 Alive Sister 2 Alive Sister 3 Alive Sister 4 Social History Tobacco Use Types Packs/Day Years Used Date Smoking Tobacco: Former Cigarettes 0.5 5 1 968 - 1973 Smokeless Tobacco: Never Tobacco Cessation:Counseling Given: Not Answered Alcohol Use Standard Drinks/Week Comments Yes 0 (1 standard drink = 0.6 oz pur e alcohol) ocassional beer Child or Family Care Answer Date Record ed Do you have problems with on e of the following making it difficult for you to work, study, or receive health care? No 05/14/2025 Education Answer Date Recorded Are you interested in more education? Not on alfred e 01/17/2023 Are you concerned about learning? Not on file 01/17/2023 No 01/17/2023 No 01/17/2023 Food Answer Date Recorded Within the past 6 months we worried whether our food would run out before we got money to buy more. Never True 05/14/2025 Within the past 6 months the food we bought just didn't last and we didn't have enough money to get more. Never True Residential Stability Answer Date Recor ded What is your housing situation today? I have santiago sing 05/14/2025 How many times have you move d in the past 12 months? Zero (I did not move) 05/14/2025 Paying for Meds Answer Date Recorded Do you have trouble paying for medicines? No 05/14/2025 Paying Utility Bills Answer Date Record ed Do you have trouble paying your heating or elect ricity bill? No 05/14/2025 Transportation Answer Date Recorded Has the lack of transportati on kept you from medical appointments or from getting medications? No 05/14/2025 Digital Access Answer Date Recorded No 05/14/2025 Yes 05/14/2025 Do you have reliable internet access at home? Ye s 05/14/2025 Do you have a device (e.g., phone, tablet, computer) with a working camera? Yes 05/14/2025 Intimate Partner Violence Answer Date R ecorded Denied Basic Needs Not on file 05/14/2025 In the past 12 months have y ou been in a relationship with a person who hurts, threatens, or tries to control you? No 05/14/2025 Worried food would run out Not on file 05/14 In the past 12 months have y ou been in a relationship with a person who hurts, threatens, or tries to control you? No 05/14/2025 Sex and Gender Information Value Date Recorded Sex Assigned at Not on file Legal Sex Male 3:45 PM EST Gender Identity Not on file Sexual Orientation Not on file Last Filed Vital Signs Vital Sign Reading Time Taken Comments Blood Pressure 130/72 05/21/2025 2:50 PM EDT Pulse 74 05/21/2025 2:50 PM EDT Temperature 36.6 C (97.9 F) 12/19/2022 11:37 AM EDT Respiratory Rate - - Oxygen Saturation 97% 05/21/2025 2:50 PM EDT Inhaled Oxygen Concentration - - Weight 84.2 kg (185 lb 9.6 oz) 05/21/2025 2:50 P M EDT Height 177.8 cm (5' 10 ) 10/14/2019 1:58 PM EST Body Mass Index 26.63 10/14/2019 1:58 PM EST Plan of Treatment Upcoming Encounters Date Type Department Care Team (Late st Contact Info) Description 11/22/2025 4:00 PM EST Office Visit [facility] [address] [place] [address] [place] [address] Denny Jean DO [address] [facility], [address]nd [place] [address] 02/15/2026 3:15 PM EDT Follow-Up [facility] [address] [place] [address] Gurdeep Munoz MD [address] [place] [address] Health Maintenance Due Date Last Done Comments LIPID PANEL 1966 INFLUENZA VACCINE (#1) 2025 , 06/29/2024, 07/14/2023, Additional history exists COVID-19 VACCINE ( season) 2025 07/22/2022, 08/08/2021, 11/30/2020, Additional history exists HEMOGLOBIN A1C 10/24/2025 04/23/2025, 01/11/2015 BLOOD PRESSURE 11/20/2025 05/21/2025 CREATININE LEVEL 01/01/2026 01/01/2025, , 03/05/2024, Additional history exists POTASSIUM LEVEL 01/01/2026 01/01/2025, 06/23, 03/05/2024, Additional history exists DEPRESSION SCREENING 05/14/2026 05/14/2025 DIABETIC EYE EXAM 05/19/2026 05/19/2025 Adult Td,Tdap Booster 10/02/2031 10/02/2021 , 10/08/2011, 10/08/2011 ZOSTER VACCINES Completed 02/10/2019, 11/22, 07/24/2014 PNEUMOCOCCAL VACCINES (50+ years) Completed 08/17/2020, 12/20/2015 RSV VACCINE Completed 06/29/2024, 06/29/2024 HEPATITIS C SCREENING Completed 05/21/2025 SMOKING STATUS SCREENING (Once After 26 Yrs) Completed 05/21/2025 HEPATITIS A VACCINES Aged Out No long er eligible based on patient's age to complete this topic HIB VACCINES Aged Out No longer eligi ble based on patient's age to complete this topic MENINGOCOCCAL VACCINES (ACWY) Aged Out No longer eligible based on patient's age to complete this topic MENINGOCOCCAL VACCINES (B) Aged Out N o longer eligible based on patient's age to complete this topic Medical Devices Not on file Procedures Procedure Name Priority Date/Time Associated Diagnosis Comments OUTSIDE HEPATITIS C VIRUS SCREENING Routine 05/21/2025 HM DIABETES EYE EXAM FOR RESULT ENTRY ONLY Routine 05/19/2025 OUTSIDE HEMOGLOBIN A1C Routine 04/23/2025 COMPREHENSIVE METABOLIC PANEL Routine 01/01/2025 11:08 AM EDT Screening for prostate cancer Malignant neoplasm of prostate Polypharmacy from Last 3 Months or Most Recently Relevant to Health Maintenance Results * Outside Hepatitis C Virus Screening (05/21/2025) Pathologist [facility] Hepatitis C Screening - External Neg (patient reported) [facility] Provider LAB BLOOD ORDERABLES Sheila l Result * HM DIABETES EYE EXAM FOR RESULT ENTRY ONLY (05/19/2025) [facility] HM EYE EXAM normal [facility] Provider HEALTH MAINTENANCE Final Result * Outside HbA1c (04/23/2025) [facility] Hemoglobin A1c - External 5.8 % Result Critical access hospital LAB BLOOD ORDERABLES Sheila l Result * (ABNORMAL) Comprehensive metabolic panel (01/01/2025 11:08 AM EDT) [facility] SODIUM 139 133 - 146 mmol/L [facility] POTASSIUM 4.2 3.3 - 5.1 mmol/L [facility] CHLORIDE 102 96 - 108 mmol/L [facility] CO2 28 21 - 35 mmol/L [facility] BUN 27(H) 6 - 19 mg/dL [facility] CREATININE 1.00 0.5 - 1.5 mg/dL [facility] GLUCOSE 132(H) 70 - 99 mg/dL [facility] ALBUMIN 4.4 3.9 - 4.8 g/dL [facility] TOTAL PROTEIN 7.4 6.5 - 8.0 g/dL [facility] CALCIUM 9.7 8.4 - 10.3 mg/dL [facility] ALKALINE PHOSPHATASE 84 39 - 117 U/L [facility] TOTAL BILIRUBIN 0.3 0.0 - 1.2 mg/dL [facility] AST 16 0 - 37 U/L [facility] ALT 12 0 - 40 U/L [facility] GLOBULIN 3.0 1 - 4.8 g/dL [facility] EGFR 78 >59 mL/min/1.7 3m2 [facility] Comment:Estimated glomerular filtration rate calculated using the CKD-EPI refit equation. ANION GAP 13 10 - 20 mmol/L [facility] Blood 01/01/2025 11:0 8 AM EDT 01/01/2025 11:12 AM EDT us Otf Carbajal MD LAB BLOOD ORDERABLES Final Resul t [facility] [address] [place] [address] from Last 3 Months or Most Recently Relevant [place] [id number] [facility] MEDICARE SUPPLEMENT MEDICARE PART A & B [facility] MEDICARE SUPPLEMENT MEDICARE PART A & B [facility] MEDICARE SUPPLEMENT MEDICARE PART A & B [facility] MEDICARE SUPPLEMENT MEDICARE PART A & B [facility] MEDICARE SUPPLEMENT MEDICARE PART A & B [employer]OS MEDICARE SUPPLEMENT MEDICARE PART A & B [employer] O MEDICARE SUPPLEMENT Care Teams Cooker Pie Filling Relationship Specialty Start Date End Date Denny Jean DO [address] [place] [address], [address] [place] [address] [email or web address] PCP - General Internal Medicine 05/21/25 Additional Source Comments The information contained in this document represents components of the legal health record. It is not the complete legal health record.[facility]
--- OUTSIDE RECORDS SUMMARY | 2025-07-12 18:21 | XMS_ITS | Encounter Summary ---
Author Organization [facility] Address [address] [place] [phone] Phone Care Team Providers Care Linoleum Tile Layer Name Role Phone Sd Drew MD Primary Care Provider + [phone] Denny Jean DO Primary Care Provider Encounter Details Date Type Department Care Team (Late st Contact Info) Description 03/16/2024 [employer] Generated VIRTUAL DEPARTMENT [address] [place] [phone] Unknown, Unknown, Social History Tobacco Use Types [...] Progress Notes * Otf Carbajal MD - 03/16/2024 1:52 AM EDT [facility] ONCOLOGY PROGRESS NOTE Patient Name: DUSTIN REID Date of : 1950 Diagnosis: [ICD10] C61 Malignant neoplasm of prostate PCP: SD DREW Date of Visit: March 16, 2024 Last visit: 11/22/2023 Reason for Visit: Prostate cancer Interval History: He is here alone. He is now on surveillance. He reports feeling well, energy is improving. We discussed concepts of testosterone recovery and further PSA testing. He wishes to have another visit in 4 months, per patient preference, which is fine. He is fine with in person visits. PREV COMMENTS # NOV 2023 He is here with his . We review his labs done at [facility]. 11/13/2023: CBC 7.33/12.8, 39.6%/222, PSA less than 0.01 Today will be his last leuprolide shot. He does report some fatigue, but tolerable. # AUG 2023 He is here with . PSA was not done but they will do post visit. He was supposed to do at [facility], but he will do that in the future. He otherwise is doing well. Still has tolerable hot flashes. Has decreased stamina. He will get a 3 month dose of leuprolide. He will get a dose today and his next visit will be his [...] obtain labs closer to home at the [facility] labs. I will send orders through [employer]. He will see me again in 3 months for next leuprolide shot though. #FEB 2023 He is here with his . PSA now undetectable. I give him a copy of results. He completed radiation therapy with our colleagues out at [facility]. He will continue with his next leuprolide dose. We discussed duration of 6 months versus longer. Wewill continue discussion next time. #NOV 2022 He [...] adenocarcinoma with extraprostatic extension seen. 57 g, [place] 9 (4+5), neoadjuvant therapy effect seen, 0 of 4 lymph nodes, (pT3a, pN0, pMX) LVI negative, PNI positive, no seminal vesicles involvement. Margin negative. Dr Ronn Ward, [facility]. 04/18/2015 - 06/03/2015 adjuvant radiation therapy given, with Josef Roe MD at [facility], [facility]; concurrent ADT given. 11/09/2022: First visit Luis [facility] medical oncology Dr. Otf Carbajal 11/23/2022: start [...] etoh use. Physical Examination: Date 11/09/2022 05/20/2023 03/16/2024 Time 10:29 AM 10:12 AM 1:32 PM Vital Signs & Weight T (F) (F) 97.8 P 81 B/P (mmHg) 147/78 L or R Arm LA Oxygen Saturation (%) 97 Height (in) (inch) 72.75 Weight (lb) (lb) 228 BSA(D) (m*2) 2.27 BMI (A) (kg/m*2) 30.3 Percent Weight Change -1 Pain Intensity-Current None ECOG performance status: 1 [...] perivesical, pelvic fat. No abnormal uptake is noted [...] of the sigmoid, but without evidence of stercoralcolitis, or distal stenosis, or suggestion of the sigmoid mass no distention of the remainder of the colon with gas or stool. Appendix unremarkable. Skeleton: No abnormal uptake is found. No suspicious bony lytic or sclerotic lesions. Impression: 1. Prominent uptake is noted of a small mediastinal retrocaval azygos lymph node, suspicious for metastasis. 2. Asymmetrically increased number and asymmetricallylarger size (although not abnormally enlarged using CT [...] <0.04 11/13/2023: <0.01 ([facility]) 03/05/2024 <0.01 ([facility]) Assessment:73 M with prostate adenocarcinoma, status post prostatectomy and adjuvant radiation therapy in 2014, [place] 9 (4+5) disease, now with concerns of biochemical recurrence, 10/29/2022 PSA 0.56. PETCT PSMA scans in early NOV 2022 shows oligomet disease. Clinically stable. ADT started in NOV 2022. Radiation to mediastinum for lymph node involvement completed in JANUARY 2023. Today he is doing well on surveillance. We will see how his testosterone recovers. PREV COMMENTS # NOV 2023 He is doing well, PSA remains undetectable. Today is his last leuprolide dose. # AUG 2023 he continues to do well with ADT. PSA is undetectable. # APR 2023 as above, we will continue with leuprolide for longer than 6 months, given unusual site of recurrence and high-grade [place] score cancer. He is tolerating ADT well. [...] matters at length and he wishes to proceedwith a PETCT PSMA scan, which is reasonable. [...] meds, management, referral as needed Plan: 1. Now on surveillance. 2. RTC 4 months, previsit labs ordered. Otf Carbajal MD Medical Oncology Visit 40 [...] encounter. Electronically signed by: Otf Carbajal MD March 17, 2024 7:05 PM CC: cc: CHAYITO CANTU, GURDEEP Ridley. MD Jaswinder Hunter MD RICHARDS DUSTIN : 1950 DOS: 03/16/24 Page 2 of 3 CC OTHER PROVIDER: PRIMARY CARE: SD DREW MD documented in this encounter Plan of Treatment Upcoming Encounters Date Type Department Care Team (Late st Contact Info) Description 11/22/2025 4:00 PM EST Office Visit [facility] [address] [place] [address] [place] [address] Denny Jean DO [address] [facility], 2nd [place] [address] [email or web address] 02/15/2026 3:15 PM EDT Follow-Up [facility] Urology [address] [place] [address] Gurdeep Munoz MD [address] [place] [address] documented as of this encounter Visit Diagnoses Not on filedocumented in this encounter Care Teams Linoleum Tile Layer Relationship Specialty Start Date End Date Sd Drew MD [address] [place] [address] PCP - General Internal Medicine 12/19/22 05/20/25 Denny Jean DO [address] [place] [address], 2[address] [place] [address] [email or web address] PCP - General Internal Medicine 05/21/25 documented as of this encounter Additional Source Comments The information contained in this document represents components of the legal health record. It is not the complete legal health record.[facility]
--- OUTSIDE RECORDS SUMMARY | 2025-07-12 18:21 | XMS_ITS | Encounter Summary ---
Author Organization [facility] Address [address] [facility] [address] [place], [place] [id number] Phone Care Team Providers Care Matrix Drier Tender Name Role Phone Sd Drew MD Primary Care Provider + [phone] Denny Jean DO Primary Care Provider Encounter Details Date Type Department Care Team (Late st Contact Info) Description 11/22/2023 [employer] Generated VIRTUAL DEPARTMENT Unknown, Unknown, MD Social [...] Progress Notes * Otf Carbajal MD - 11/22/2023 12:00 AM EST [employer] MEDICAL ONCOLOGY PROGRESS NOTE Patient Name: DUSTIN REID Date of : 1950 Diagnosis: [ICD10] C61 Malignant neoplasm of prostate PCP: SD DREW Date of Visit: November 22, 2023 Last visit: 08/23/2023 Reason for Visit: Prostate cancer Interval History: He is here with his . We review his labs done at [facility]. 11/13/2023: CBC 7.33/12.8, 39.6%/222, PSA less than 0.01 Today will be his last leuprolide shot. He does report some fatigue, but tolerable. We are fine with an inperson visit in 4 months. PREV COMMENTS # AUG 2023 He is here with . PSA was not done but they will do post visit. He was supposed to do at [facility], but he will do that in the future. He otherwise is doing well. Still has tolerable hot flashes. Has decreased stamina. He will get a 3 month dose of leuprolide. He will get a dose today and his next visit will be his lastdose. I will contact him post visit with [...] obtain labs closer to home at the [facility] labs. I will send orders through [employer]. He will see me again in 3 months for nextleuprolide shot though. #FEB 2023 He is here with his . PSA now undetectable. I give him a copyof results. He completed radiation therapy with our colleagues out at [facility]. He will continue with his next leuprolide dose. We discussed duration of 6 months versus longer. We will continue discussion next time. #NOV 2022 He is here alone. We start leuprolide. I did reach out to his radiation oncologist, Dr Roe, and apparently, he is no longer at that practice. I will review hisscans with Dr Cárdenas. He will proceed with a 3 month shot today. # 11/23 PETCT PSMA shows a thoraciclymph node lesion and possible pelvic lymph node [...] He is here alone today. [facility]. He has undergone prostatectomy and [...] adenocarcinoma with extraprostatic extension seen. 57 g, [place] 9 (4+5), neoadjuvant therapy effect seen, 0 of 4 lymph nodes, (pT3a, pN0, pMX) LVI negative, PNI positive, no seminal vesicles involvement. Margin negative. Dr Ronn Ward, [facility]. 04/18/2015 - 06/03/2015 adjuvant radiation therapy given, with Josef Roe MD at [facility], [facility]; concurrent ADT given. 11/09/2022: First visit [facility] [place] Dr. Otf Carbajal 11/23/2022: start [...] etoh use. Physical Examination: Date 11/09/2022 05/20/2023 11/22/2023 Time 10:29 AM 10:12 AM 11:40 AM Vital Signs & Weight T (F) (F) 97.8 P 74 B/P (mmHg) 152/69 L or R Arm RA Oxygen Saturation (%) 97 Height (in) (inch) 72.75 Weight (lb) (lb) 223 BSA(D) (m*2) 2.25 BMI (A) (kg/m*2) 29.6 Percent Weight Change -3 Pain Intensity-Current None ECOG performance status: 1 [...] abnormally enlarged using CT size criteria) and borderlineincreased uptake of left inguinal lymph nodes. 3. Cholelithiasis. 4. 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 Electronically Signed By: Tra Pierce MD Date 08/23/2023 Time 12:22 PM CBC with Differential WBC (10^3/mm3) 8.1 RBC (10^6/mm3) 4.40 L HEMOGLOBIN (g/dl) 13.0 L HEMATOCRIT (%) 38.5 L PLATELET (10^3/mm3) 250 % NEUTROPHILS (%) 71.4 H % LYMPHOCYTES (%) 15.3 L % MONOCYTES (%) 10.0 % EOSINOPHILS (%) 2.2 % BASOPHILS (%) 0.6 % IMMATURE GRANULOCYTES (%) 0.5 ABSOLUTE NEUTROPHIL COUNT (10^3/mm3) 5.8 ABSOLUTE LYMPHOCYTE COUNT (10^3/mm3) 1.2 ABSOLUTE MONOCYTE COUNT (10^3/mm3) 0.8 ABSOLUTE EOSINOPHIL COUNT (10^3/mm3) 0.2 ABSOLUTE BASOPHIL COUNT (10^3/mm3) 0.1 ABS IMMATURE GRANULOCYTES (10^3/mm3) 0.0 MCV (fL) 87.5 MCH (pg) 29.5 MCHC (g/dl) 33.8 RBC DISTRIBUTION WIDTH (%) 12.4 % NUCLEATED RBC (%) 0 ABS NUCLEATED RBC (10^3/mm3) 0.0 COMMP SODIUM (mEq/L) 141 POTASSIUM (mEq/L) 4.2 CHLORIDE (mEq/L) 105 CARBON DIOXIDE (mEq/L) 32 H ANION GAP (mEq/L) 4 L GLUCOSE (mg/dL) 156 H BUN (mg/dL) 17 Creatinine (mg/dL) 1.10 CALCIUM (mg/dL) 10.2 TOTAL PROTEIN (g/dl) 7.6 GLOBULIN (g/dl) 3.0 ALB/GLOB RATIO 1.5 BILIRUBIN,TOTAL (mg/dL) 0.4 ALKALINE PHOSPHATASE (U/L) 99 AST(SGOT) (U/L) 16 ALT(SGPT) (U/L) 27 Chemistry PROSTATE SPECIFIC ANTIGEN (ng/ml) < 0.04 Other Labs WHITE BLOOD CELL COUNT (10^3/mm3) 8.10 Hematocrit (%) 38.50 L Potassium (mEq/L) 4.20 AST(SGOT) (U/L) 16.00 ALT(SGPT) (U/L) 27.00 Sodium (mEq/L) 141.00 Chloride (mEq/L) 105.00 Bilirubin, Total (mg/dL) 0.40 Hemoglobin (g/dl) 13.00 L CrCl (C&G) - MQ Calculated (ml/min) 83.61 TESTOSTERONE,TOTAL (ng/dL) 8 L MPV (fL) 9.4 PSA 06/20/2022 0.13 10/29/2022 0.Nov started ADT 12/03/2022 0.23 mid APR - XRT to mediastinal lymph node 02/21/2023 <0.04 04/26/2023 <0.04 08/23/2023 <0.04 11/13/2023: <0.01 ([facility]) Assessment:73 M with prostate adenocarcinoma, status post prostatectomy and adjuvant radiation therapy in 2014, [place] 9 (4+5) disease, now with concerns of biochemical recurrence, 10/29/2022 PSA 0.56. PETCT PSMA scans in early NOV 2022 shows oligomet disease. Clinically stable. ADT started in NOV 2022. Radiation to mediastinum for lymph node involvement completed in JANUARY 2023. Today He is doing well, PSA remains undetectable. Today is his last leuprolide dose. PREV COMMENTS # AUG 2023 he continues to do [...] wishes to proceed with start of ADT. Therecould be possibility of radiation to the area [...] needed Plan: 1. Leuprolide today. 2. RTC 4 months, previsit labs ordered. Will start surveillance then. Otf Carbajal MD Medical Oncology Visit 40 min Electronically signed by: Otf Carbajal MD November 23, 2023 10:24 PM CC: cc: CHAYITO CANTU, MD Jaswinder Estrella MD RICHARDS, RAYMOND : 1950 DOS: 11/22/23 Page 6 of 6 CC OTHER PROVIDER: PRIMARY CARE: SD DREW MD documented in this encounter Plan of Treatment Upcoming Encounters Date Type Department Care Team (Late st Contact Info) Description 11/22/2025 4:00 PM EST Office Visit [facility] [address] [place] [address] Denny Jean DO [address] [place] [phone] [email or web address] 02/15/2026 3:15 PM EDT Follow-Up [facility] Urology [address] [place] [address] Gurdeep Munoz MD [address] [place] [address] documented as of this encounter Visit Diagnoses Not on filedocumented in this encounter Care Teams Matrix Drier Tender Relationship Specialty Start Date End Date Sd Drew MD [address] [place] [address] PCP - General Internal Medicine 12/19/22 05/20/25 Denny Jean DO [address] [place] [address], [address] [place] [phone] PCP - General Internal Medicine 05/21/25 documented as of this encounter Additional Source Comments The information contained in this document represents components of the legal health record. It is not the complete legal health record.[facility]
--- OUTSIDE RECORDS SUMMARY | 2025-07-12 18:21 | XMS_ITS | Encounter Summary ---
Author Organization [facility] Address [address] [place] [phone] Phone Care Team Providers Care Airframe And Powerplant Mechanic Name Role Phone Sd Drew MD Primary Care Provider + [phone] Denny Jean DO Primary Care Provider Encounter Details Date Type Department Care Team (Late st Contact Info) Description 07/17/2024 [email or web address] Generated VIRTUAL DEPARTMENT [address] [place] [phone] Unknown, Unknown, Social History Tobacco Use [...] Progress Notes * Otf Carbajal MD - 07/17/2024 12:00 AM EDT [facility] ONCOLOGY PROGRESS NOTE Patient Name: DUSTIN REID Date of : 1950 Diagnosis: [ICD10] C61 Malignant neoplasm of prostate PCP: SD DREW Date of Visit: July 17, 2024 Last visit: 03/16/2024 Reason for Visit: Prostate cancer Interval History: 07/09/2024: PSA less than 0.01. CBC shows a mild anemia. He [...] to normalize, if they do. We are fine with another visit in 6 months. PREV COMMENTS # FEB 2024 He is here alone. He is now on surveillance. He reports feeling well, energy is improving. We discussed concepts of testosterone recovery and further PSA testing. He wishes to have anothervisit in 4 months, per patient preference, which is fine. He is fine with in person visits. # NOV 2023 He is here with his . We review his labs done at [facility]. 11/13/2023: CBC 7.33/12.8, 39.6%/222, PSA less than 0.01 Today will be his last leuprolide shot. He does report some fatigue, but tolerable. # AUG 2023 He is here with . PSA was not done but they will do post visit. He was supposed to do at [facility], but he will do that in the [...] obtain labs closer to home at the [facility] labs. I will send orders through [employer]. He will see me again in 3 months for nextleuprolide shot though. #FEB 2023 He is here with his . PSA now undetectable. I give him a copyof results. He completed radiation therapy with our colleagues out at [facility]. He will continue with his next [...] radiation field and the risk benefit of radiationto this area. # OCT 2022 He is here alone today. We reviewed his prostate cancer history. He has undergone prostatectomy and adjuvant radiation therapy in 2014. PSA had been undetectable until summer 2021 when it became detectable. Most recent PSA on 10/29/2022 shows 0.53. He has been recently seen by colleague Dr. Gurdeep Munoz. He is referred here tomedical oncology for concerns of biochemical recurrence. He [...] vesicles involvement. Margin negative. Dr Ronn Ward, [facility]. 04/18/2015 - 06/03/2015 adjuvant radiation therapy given, with Josef Roe MD at [facility]; concurrent ADT given. 11/09/2022: First visit [facility] medical oncology Dr. Otf Carbajal 11/23/2022: start [...] etoh use. Physical Examination: Date 11/09/2022 05/20/2023 07/17/2024 Time 10:29 AM 10:12 AM 11:44 AM Vital Signs & Weight T (F) (F) 97.8 P 67 B/P (mmHg) 117/69 L or R Arm RA Oxygen Saturation (%) 98 Height (in) (inch) 72.75 Weight (lb) (lb) 199.4 BSA(D) (m*2) 2.14 BMI (A) (kg/m*2) 26.5 Percent Weight Change -13 Pain Intensity-Current None ECOG performance status: 1 [...] retroperitoneal and pericaval lymph node chains of gonadalchains on either side. No hydronephrosis or hydroureter. There is quite low level uptake within nonenlarged left inguinal lymph nodes, similar to blood pool, but while these are not enlarged, these are asymmetrically increased in number and show greater uptake than the contralateral side. No abnormal uptake is found of liver, spleen, adrenal glands,pancreas. There is cholelithiasis. There is mild stool [...] ([facility]H) 03/05/2024 <0.01 ([facility]H) 07/09/2024: <0.01 ([facility]) Assessment:73 M with prostate adenocarcinoma, status post prostatectomy and adjuvant radiation therapy in 2014, [place] 9 (4+5) disease, now with concerns of biochemical recurrence, 10/29/2022 PSA 0.56. PETCT PSMA scans in early NOV 2022 shows oligomet disease. Clinically stable. ADT started in NOV 2022. Radiation to mediastinum for lymph node involvement completed in JANUARY 2023. ADT completed FEB 2024. Today - Doing well from PSA perspective. Mild anemia noted as above. He will review with PCP. PREV COMMENTS # FEB 2024 he is doing well [...] needed Plan: 1. On surveillance. 2. RTC 6 months, previsit labs ordered. Otf Carbajal MD [...] encounter. Electronically signed by: Otf Carbajal MD July 18, 2024 12:13 PM CC: cc: CHAYTIO CANTU, MD Jaswinder Estrella MD RICHARDS, RAYMOND : 1950 DOS: 07/17/24 Page 5 of 5 CC OTHER PROVIDER: HENRY MUNOZ MD PRIMARY CARE: SD DREW MD documented in this encounter Plan of Treatment Upcoming Encounters Date Type Department Care Team (Late st Contact Info) Description 11/22/2025 4:00 PM EST Office Visit [facility] [address] [place] [address] Dr [place], [place] [address] Denny Jean, DO [address] [facility], [address] [place] [phone] 02/15/2026 3:15 PM EDT Follow-Up [facility] [address] [place] [address] Gurdeep Munoz MD [address] [place] [address] documented as of this encounter Visit Diagnoses Not on filedocumented in this encounter Care Teams Airframe And Powerplant Mechanic Relationship Specialty Start Date End Date Sd Drew MD [address] [place] [address] PCP - General Internal Medicine 12/19/22 05/20/25 Denny Jean DO [address] [facility], [address] [place] [address] PCP - General Internal Medicine 05/21/25 documented as of this encounter Additional Source Comments The information contained in this document represents components of the legal health record. It is not the complete legal health record.[facility]
--- OUTSIDE RECORDS SUMMARY | 2025-07-12 18:21 | XMS_ITS ---
Author Name [facility] Organization Unknown Encounters Encounter Type Encounter Reason Primary Diagnosis Location Date Ambulatory [facility] 06/24/2023 Care Team Organization Name Specialty Phone Email Start Date End Da te [facility] 06/24/2023 06/24/2023 [facility] 06/24/2023
--- OUTSIDE RECORDS SUMMARY | 2025-07-12 18:21 | XMS_ITS | Clinical Summary ---
Author Organization [facility] Address [address] [place] [address] Care Team Providers Care Humanities Coordinator Name Role Phone Sd Ward MD Primary Care Provider Allergies No known active allergies Medications amLODIPine (NORVASC) 5 mg tablet Take 10 mg by mouth daily. Active pravastatin (PRAVACHOL) 20 mg tablet Take 20 mg by mouth daily. Active montelukast (SINGULAIR) 10 mg tablet Take 10 mg by mouth daily. Active fluticasone-kiki meterol (ADVAIR DISKUS) 100-50 mcg/dose diskus inhaler Inhale 1 Puff as directed every 12 hours. Active albuterol (PROVENTIL) 5 mg/mL nebulizer solution Take 2.5 mg by nebulization every 4 hours as needed for Wheezing. Active fluticasone (FLOVENT) 110 mcg/actuation inhaler Inhale as directed every 12 hours. Active Medical History Medical History Date Comments Hypertension Asthma Social History Tobacco Use Types Packs/Day Years Used Date Smoking Tobacco: Former Smokeless Tobacco: Never Alcohol Use Standard Drinks/Week Comments Yes 4 (1 standard drink = 0.6 oz pur e alcohol) Interpersonal Safety Answer Date Record ed Physically Hurt Never 04/25/2020 Verbally Threaten Not on file 04/25/2020 Sex and Gender Information Value Date Recorded Sex Assigned at Not on file Legal Sex Male 0:51 EST Gender Identity Not on file Sexual Orientation Not on file Obstetrics History Last Filed Vital Signs Vital Sign Reading Time Taken Comments Blood Pressure 124/62 09/01/2017 0600 EST Pulse 92 09/01/2017 0057 EST Temperature 37.2 C (99 F) 09/01/2017 0057 EST Respiratory Rate 24 09/01/2017 0645 EST Oxygen Saturation 99% 09/01/2017 0645 EST Inhaled Oxygen Concentration - - Weight 86.2 kg (190 lb) 09/01/2017 0057 EST Height - - Body Mass Index - - Plan of Treatment Health Maintenance Due Date Last Done Comments Hepatitis C Screen 1950 Fall Risk Screening 2013 RSV Immunization ( o r 60+ Years) (1 - 1-dose 75+ series) 2023 COVID-19 Vaccine (2023-25 season) 2024 Insurance MEDICARE Care Teams Humanities Coordinator Relationship Specialty Start Date End Date Sd Ward MD PCP - General 09/01/17
--- OUTSIDE RECORDS SUMMARY | 2025-07-12 18:21 | XMS_ITS | Continuity of Care Document ---
Author Organization [facility] [address] [place] [address] Phone [phone] Care Team Providers Care Geospatial Technologist Name Role Phone Florentin Jean MD Care Team Information Receiv er [phone] Problems Active Problems Provider Date Multinodular goiter Kirk Shetty M.D. Onset: 11/29/2022 Hyperlipidemia Kirk Shetty M.D. Onset: 05/2023 Osteoarthritis Kirk Shetty M.D. Onset: 05/2023 Essential hypertension Kirk Shetty M.D. Ons et: 11/29/2022 Carcinoma of prostate Kirk Shetty M.D. Onse t: 11/29/2022 Asthma Kirk Shetty M.D. Onset: 05/2023 Social History Type Date Description Comments Sex Male Sex Male Tobacco Use Start: Unknown Never Smoked Cigarettes ETOH Use Rarely consumes alcohol Allergies and adverse reactions Description No Known Drug Allergies Medications Active Medications SIG Qnty Indications Ordering Provider Date Pravastatin [id number] Tablets Take 1 Tablet By Mouth Daily Sd Ward M.D. Amlodipine [id number] Tablets Take 1 Tablet By Mouth Daily Sd Ward M.D. Metoprolol Succinate ER50mg Tablets ER 24HR Take 1 Tablet By Mouth Every Day Unknown Montelukast [id number] Tablets 1 by mouth every day Kirk Shetty M.D. [id number] Tablets Take 1 Tablet By Mouth Every Day Sd Ward M.D. Wixela [id number]/Act Aerosol use 1 inhalation two times a day Unknown Allergy Relief (Loratadine)10mg Tablets Unknown Ventolin YYB517(90Base) mcg/Act Aerosol Unknown Vital Signs Date Vital Result Comment 06/03/2025 9:14am BP Systolic 118 mmHg BP Diastolic 66 mmHg Heart Rate 71 /min Height 73 inches 6'1 Weight 186.25 lb BMI (Body Mass Index) 24.6 kg/m2 Results Test Acquired Date Facility Test Result H/L Range N ote TSH+Free T4 06/03/2024 [facility] TSH 0.408 uIU/mL Low 0.450-4.500 T4,Free(Direct) 1.09 ng/dL 0.82- 1.77 Medical Devices Description No Information Available Encounters Type Date Location Provider Dx Diagnosis Office Visit 06/03/2025 9:00a Main Office Yaima Ballesteros NP E04.2 Nontoxic multinodular goiter Z13.820 Encounter for screen ing for osteoporosis Assessments Date Code Description Provider 06/03/2025 E04.2 Nontoxic multinodular goiter Yaima Ballesteros NP 06/03/2025 Z13.820 Encounter for screening for osteoporosis Yaima Ballesteros NP Plan of Treatment Future Appointment(s):* 06/06/2026 8:00 am - Yaima Ballesteros NP at Main Office 06/03/2025 - Yaima Ballesteros NP* E04.2 Nontoxic multinodular goiter * Z13.820 Encounter for screening for osteoporosis* New Xrays:* Ultrasound Thyroid, Ordered: 06/03/25 Functional Status Description No Information Available Mental Status Description No Information Available Referrals Description No Information Available
--- OUTSIDE RECORDS SUMMARY | 2025-07-12 18:21 | XMS_ITS | Encounter Summary ---
Author Organization [facility] Address [address] [facility] [address] [place], [place] [id number] Phone Care Team Providers Care Mental Retardation Aide Name Role Phone Sd Drew MD Primary Care Provider [phone] Denny Jean DO Primary Care Provider Encounter Details Date Type Department Care Team (Late st Contact Info) Description 08/23/2023 SHADOW Generated VIRTUAL DEPARTMENT Unknown, Unknown, MD Social [...] Progress Notes * Otf Carbajal MD - 08/23/2023 12:00 AM EST [facility] MEDICAL ONCOLOGY PROGRESS NOTE Patient Name: DUSTIN REID Date of : 1950 Diagnosis: [ICD10] C61 Malignant neoplasm of prostate PCP: SD DREW Date of Visit: August 23, 2023 Last visit: 05/20/2023 Reason for Visit: Prostate cancer Interval History: He is here with . PSA was not done but they will do post visit. He was supposed to do at [facility], but he will do that in the future. He otherwise is doing well. Still has tolerable hot flashes. Has decreased stamina. He will get a 3 month dose of leuprolide. He will get a dose today and his next visit will be his last dose. I will contact him post visit with his PSA results. PREV COMMENTS # APR 2023 He is here with [...] obtain labs closer to home at the [facility] labs. I will send orders through [facility]. He will see me again in 3 months for next leuprolide shot though. #FEB 2023 He is here with his . PSA now undetectable. I give him a copy of results. He completed radiation therapy with our colleagues out at [facility]. He will continue with his [...] to start ADT. Bicalutamide will be started andhe will return next week to start leuprolide. [...] adenocarcinoma with extraprostatic extension seen. 57 g, Neffs 9 (4+5), neoadjuvant therapy effect seen, 0 of 4 lymph nodes, (pT3a, pN0, pMX) LVI negative, PNI positive, no seminal vesicles involvement. Margin negative. Dr Ronn Ward, [facility]. 04/18/2015 - 06/03/2015 adjuvant radiation therapy given, with Josef Roe MD at [facility]; concurrent ADT given. 11/09/2022: [place] Alfredo [facility] [place] [...] etoh use. Physical Examination: Date 11/09/2022 05/20/2023 08/23/2023 Time 10:29 AM 10:12 AM 10:40 AM Vital Signs & Weight T (F) (F) 97.8 P 82 B/P (mmHg) 147/73 L or R Arm LA Oxygen Saturation (%) 98 Height (in) (inch) 72.75 Weight (lb) (lb) 224.6 BSA(D) (m*2) 2.25 BMI (A) (kg/m*2) 29.8 Percent Weight Change -2 Pain Intensity-Current None ECOG performance status: 0. [...] not abnormally enlarged using CT size criteria) andborderline increased uptake of left inguinal lymph nodes. [...] CrCl (C&G) - MQ Calculated (ml/min) 83.61 MPV (fL) 9.4 eGFRcr 70 PSA 06/20/2022 0.13 10/29/2022 0.Nov started ADT 12/03/2022 0.23 mid APR - XRT to mediastinal lymph node 02/21/2023 <0.04 04/26/2023 <0.04 08/23/2023 <0.04 Assessment:73 M with prostate adenocarcinoma, status post prostatectomy and adjuvant radiation therapy in 2014, Gerald 9 (4+5) disease, now with concerns of biochemical recurrence, 10/29/2022 PSA 0.56. PETCT PSMA scans in early NOV 2022 shows oligomet disease. Clinically stable. ADT started in NOV 2022. Radiation to mediastinum for lymph node involvement completed in JANUARY 2023. Today he continues to do well with ADT. PSA is undetectable. PREV COMMENTS # APR 2023 as above, we will continue with leuprolide for longer than 6 months, given unusual site of recurrence and high-grade Neffs score cancer. He is tolerating ADT well. Next visit, we may consider giving a 6-month duration shot. We will continue with 3-month interval PSA checks though. Supportive care and encouragement given. # FEB 2023 PSA undetectable. He is doing well. Continue with leuprolide. Consider 6 mo duration or longer. # NOV 2022He returns to start leuprolide. We will discuss [...] Leuprolide management Leuprolide dose: 22.5 mg on 08/23/2023; next administration on 11/15/2023 Duration plan - 1 year. ADT side effects: minimal Bone management - on calcium and vitamin D - Denosumab or Zometa use; DEXA scan, FRAX score TBD Cardiac/DM risks: consider meds, management, referral as needed Plan: 1. Leuprolide today. Next time will be last dose. 2. RTC 3 months, previsit labs ordered Otf Carbajal MD Medical Oncology Visit 40 min Electronically signed by: Otf Carbajal MD August 25, 2023 10:54 PM CC: cc: CHAYITO CANTU, MD Jaswinder Estrella MD RICHARDS, RAYMOND : 1950 DOS: 08/23/23 Page 6 of 6 CC OTHER PROVIDER: PRIMARY CARE: SD DREW MD documented in this encounter Plan of Treatment Upcoming Encounters Date Type Department Care Team (Late st Contact Info) Description 11/22/2025 4:00 PM EST Office Visit [facility] [address] [place] [address] [place] [address] Denny Jean DO [address] [facility] [place] [address] 02/15/2026 3:15 PM EDT Follow-Up [facility] [address] [place] [address] Gurdeep Munoz MD [address] [place] [address] documented as of this encounter Visit Diagnoses Not on filedocumented in this encounter Care Teams Mental Retardation Aide Relationship Specialty Start Date End Date Sd Drew MD [address] [place] [address] PCP - General Internal Medicine 12/19/22 05/20/25 Denny Jean DO [address] [facility], [address] [place] [id number] PCP - General Internal Medicine 05/21/25 documented as of this encounter Additional Source Comments The information contained in this document represents components of the legal health record. It is not the complete legal health record.[facility]
== END 2025-07-12 15:23 | disposition home or self-care (01) ==
LOC: HO.HPS 14:34
PROVIDERS: PCP Internal Medicine; Visit Provider Hospitalist
DX: E04.9 Nontoxic goiter, unspecified (principal); R91.8 Other nonspecific abnormal finding of lung field; J41.0 Simple chronic bronchitis
CPT/HCPCS: 99214

== ENCOUNTER → 2025-07-12 14:33 | Outpatient (BNVA) | payer MEDICARE, BC, SELFPAY | PROVIDERS: PCP Internal Medicine; Visit Provider Hospitalist | DX: E04.9 Nontoxic goiter, unspecified (principal); R91.8 Other nonspecific abnormal finding of lung field; J41.0 Simple chronic bronchitis | CPT/HCPCS: 99212 ==